=== PATIENT | female | born 1970 | race African-American/Black ===

== ENCOUNTER 2019-07-23 09:28 | Outpatient (CLI) | payer BC, SELFPAY ==
--- NOTE | ~2019-07-23 | MM_ITS ---
EXAMINATION: MM screening [facility] BI w uri HISTORY: Screening mammogram TECHNIQUE: Craniocaudal and mediolateral oblique 3-D tomosynthesis images were obtained and synthetic 2-D images were generated. CAD analysis was submitted and interpreted. COMPARISON: 03/28/2018, 03/09/2016, 03/05/2012 BREAST PARENCHYMAL COMPOSITION: The breasts are heterogeneously dense, which may obscure small masses . FINDINGS: There is no evidence of suspicious mass, calcification, or architectural distortion to sugg est malignancy in either breast. There has been no suspicious interval change. IMPRESSION: 1. No mammographic evidence of malignancy. 2. Recommend routine screening mammography in one year. BI-RADS Category 1: Negative Reviewed, dictated and finalized at location A.
== END 2019-07-23 09:29 | disposition home or self-care (01) ==
PROVIDERS: PCP Nurse Practitioner Family; Visit Provider Student in an Organized Health Care Education/Training Program
DX: Z12.31 Encounter for screening mammogram for malignant neoplasm of breast (principal)
CPT/HCPCS: 77063; 77067

== ENCOUNTER 2020-07-18 13:01 | Outpatient (CLI) | payer BC, SELFPAY ==
--- NOTE | ~2020-07-18 | US_ITS ---
EXAMINATION: US pelvic complete w TV DATE: 07/18/2020 14:27 INDICATION: Right adnexal pain Comparison:No prior studies for comparison. TECHNIQUE: Multiple transabdominal and endovaginal sonographic images of the pelvis performed. FINDINGS: The uterus is surgically absent. The right ovary measures 2.5 x 1.5 x 1.4 cm. Contiguous with the right ovary there is a hypoechoic ma ss measuring up to 1.3 cm. There is normal vascularity in the right ovary. Left ovary is not visualiz ed. There is no free fluid in the pelvis. IMPRESSION: 1. Solid hypoechoic mass contiguous with the right ovary measuring up to 1.3 cm. No evidence for ovar mele torsion. Differential diagnosis includes benign etiologies such as hemorrhagic cyst, endometrioma , as well as germ cell tumor and ovarian adenocarcinoma. Reviewed, dictated and finalized at location A. APHONE TYPIST IMPRESSION: 1. Solid hypoechoic mass contiguous with the right ovary measuring up to 1.3 cm . No evidence for ovarian torsion. Differential diagnosis includes benign etiol ogies such as hemorrhagic cyst, endometrioma, as well as germ cell tumor and ov emily adenocarcinoma.
== END 2020-07-18 13:02 | disposition home or self-care (01) ==
LOC: ANHIMG 13:06
PROVIDERS: PCP Nurse Practitioner Family; Visit Provider Student in an Organized Health Care Education/Training Program
DX: R10.2 Pelvic and perineal pain (principal)
CPT/HCPCS: 76830; 76856

== ENCOUNTER 2020-08-03 10:48 | Outpatient (CLI) | payer BC, SELFPAY ==
--- NOTE | ~2020-08-03 | MM_ITS ---
EXAMINATION: MM screening [facility] BI w uri HISTORY: Screening mammogram TECHNIQUE: Craniocaudal and mediolateral oblique 3-D tomosynthesis images were obtained and synthetic 2-D images were generated. CAD analysis was submitted and interpreted. COMPARISON: 07/23/2019, 03/28/2018, 03/09/2016 BREAST PARENCHYMAL COMPOSITION: The breasts are heterogeneously dense, which may obscure small masses . FINDINGS: A stable mass in the upper outer quadrant of the right breast is consistent with a benign f inding. There is no evidence of suspicious mass, calcification, or architectural distortion to sugges t malignancy in either breast. There has been no suspicious interval change. IMPRESSION: 1. No mammographic evidence of malignancy. 2. Recommend routine screening mammography in one year. BI-RADS Category 2: Benign finding(s). Reviewed, dictated and finalized at location A.
== END 2020-08-03 10:49 | disposition home or self-care (01) ==
LOC: ANHIMG 10:50
PROVIDERS: PCP Nurse Practitioner Family; Visit Provider Student in an Organized Health Care Education/Training Program
DX: Z12.31 Encounter for screening mammogram for malignant neoplasm of breast (principal)
CPT/HCPCS: 77063; 77067

== ENCOUNTER 2020-08-19 13:48 | Outpatient (CLI) | payer BC, SELFPAY ==
--- NOTE | 2020-08-19 14:24 | ECG_ITS ---
Measurements Intervals [place] Rate: 68 P: 61 AR: 125 QRS: 5 QRSD: 85 T: -86 QT: 379 QTc: 405 Interpretive Statements SINUS RHYTHM POSSIBLE LEFT ATRIAL ENLARGEMENT INCOMPLETE RIGHT BUNDLE BRANCH BLOCK ST-T WAVE ABNORMALITY IN ANTEROLAT/INF LEADS- CONSIDER ISCHEMIA ABNORMAL ECG Electronically Signed On 08-19-2020 14:49:22 CDT by Kenneth Dave D.O.
[2020-08-19 14:50] LABS: Hematocrit 41.4 % (37.0-47.0); Hemoglobin 13.6 g/dL (12.0-15.0)
== END 2020-08-19 13:49 | disposition home or self-care (01) ==
PROVIDERS: PCP Nurse Practitioner Family; Referring Provider Student in an Organized Health Care Education/Training Program; Visit Provider Anesthesiology
DX: D64.9 Anemia, unspecified (principal); I49.9 Cardiac arrhythmia, unspecified; Z01.818 Encounter for other preprocedural examination; I45.10 Unspecified right bundle-branch block
CPT/HCPCS: 36415; 85014; 85018; 93005

== ENCOUNTER → 2020-08-30 03:25 | Outpatient (CLI) | payer BC, SELFPAY ==
[2020-08-30 20:31] LABS: SARS-CoV-2 RNA PCR Negative
== END ==
PROVIDERS: PCP Nurse Practitioner Family; Visit Provider Student in an Organized Health Care Education/Training Program
DX: Z01.812 Encounter for preprocedural laboratory examination (principal); Z20.822 Contact with and (suspected) exposure to COVID-19
CPT/HCPCS: C9803; U0003; U0005

== ENCOUNTER 2020-09-02 01:38 | Day surgery (SDC) | payer BC, SELFPAY ==
[2020-08-18 13:34] VITALS: BMI 24.2
--- NOTE | 2020-09-01 09:44 | WPDANESEPPF ---
Anes - Initial Pre Proc Eval Procedure: Operation Date: 09/02/20 07:30 Proposed Procedures p Laparoscopic Right Salpingo-Oophorectomy - Sofia Cooper MD Date/Time: 09/01/20 09:44 Surgeon: Sofia Cooper MD Pre Op Diagnosis: Right Ovarian Solid Mass Patient Data Age: 49 Gender: F Height: 1.57 m Weight: 60 kg Allergies Allergy/AdvReac Type Severity Reaction Status Date / Time codeine Allergy Severe SHORTNESS Verified 08/23/20 13:53 OF BREATH levofloxacin Allergy Severe HIVES Verified 08/23/20 13:53 Home Medications Medication Instructions Recorded Confirmed Type albuterol sulfate 90 mcg/actuation 1 puff INHALATION Q4H PRN 07/12/20 History aerosol inhaler Patient hx anesthesia problems: none Family hx anesthesia problems: none PMFSH Past Medical History Medical History (Updated 09/02/20 @ 06:49 by Sofia Cooper MD) Acid reflux Anemia History of bronchitis History of pneumonia Hypertension Vaginal delivery x3 Surgical History Surgical History (Updated 08/23/20 @ 13:54 by Janet Jerome CMA) History of hysterectomy 2012 History of tubal ligation Family History Family History Mother Diabetes mellitus Patient's mother is in good health, Onset Age: 66 Hypertension Cerebrovascular accident Father Patient's father is in good health Sibling Patient's sister is in good health Family history of blood dyscrasia Grandparent Family history of malignant neoplasm of breast in first degree relative Social History Social History Smoking status: Former smoker Second hand tobacco smoke exposure: No Additional smoking assessment comments: HOOKA ON THE WEEKENDS Alcohol intake: current Drinks per week: 3 Substance use type: other Living arrangements: alone Anes - Eval Final PreProcedure Day of Procedure 09/01/20 09:44 Patient weight: normal Heart: regular rate and rhythm Lungs: clear to auscultation and normal air movement Airway: Mallampati scale class II Neurological: alert and oriented Last oral intake: >/= 8 hours ASA classification: II Emergent: no Anesthetic plan: proceed Anesthesia type and monitoring: general ETT Informed Consent: The patient's anesthetic plan and its attendant risks and benefits were discussed with the patient/family/POA. Questions were solicited and answers provided to the satisfaction of the patient/family/POA.
[2020-09-02] VITALS (12 sets, daily range): BP systolic 107–138; BP diastolic 65–93; PULSE 65–87; RESP 12–18; TEMP 36.4–36.8; O2SAT 100
[2020-09-02] MEDS: LACTATED RINGERS 1,000 ML 30 ML IV CONT ×2 (06:39→09:10)
[2020-09-02] MEDS: KETOROLAC 15 MG/ML VIAL (*BKC) IV PUSH (06:40)
[2020-09-02] MEDS: ACETAMINOPHEN 500 MG TABLET 1000 MG PO (06:40)
--- NOTE | 2020-09-02 06:45 | PM.IMHP ---
H&P: HPI History of Present Illness Date/Time: 09/02/20 06:45 Patient is a 49 year old woman s/p hysterectomy who presented to gynecology office in 07/2020 reporting persistent right sided pelvic pain that had been present for a long time. Ovaries were left in situ at time of hysterectomy and current daily pain is described as achy and near ovaries. A pelvic US was performed and showed a 1.3 cm mass contiguous with the right ovary. CA-125 was negative. Discussion had with patient regarding US findings and possible etiology of symptoms and decision was made to proceed with surgery to excise right ovary and mass. In general, patient is well today. Chief Complaint: pelvic pain, right adnexal mass Review of Systems Review of Systems: All systems reviewed & are unremarkable except as noted in HPI and below Constitutional: Constitutional: Reports as per HPI, Reports no additional constitutional complaints, Denies chills, Denies fever(s), Denies headache(s) and Denies night sweats Eyes: Eyes: Reports as per HPI and Reports no additional eye complaints ENT: Reports system reviewed and no additional complaints, except as documented, Reports as per HPI, Reports Normal hearing present and Denies headache(s) Cardiovascular: Cardiovascular: Reports as per HPI, Reports no additional cardiovascular complaints, Denies chest pain and Denies dyspnea Respiratory: Respiratory: Reports as per HPI, Reports no additional respiratory complaints, Denies cough and Denies dyspnea Gastrointestinal: Gastrointestinal: Reports as per HPI, Reports no additional gastrointestinal complaints, Denies abdominal pain, Denies change in bowel habits, Denies change in stool character, Denies nausea and Denies vomiting Genitourinary: Genitourinary: Reports no additional female genitourinary complaints, Reports as per HPI, Denies abnormal vaginal bleeding, Denies genital lesions, Denies hot flashes, Denies dyspareunia, Reports pelvic pain, Denies sexual dysfunction, Denies urinary incontinence, Denies vaginal discharge, Denies vaginal dryness and Denies vaginal odor Musculoskeletal: Musculoskeletal: Reports no additional musculoskeletal complaints and Reports as per HPI Integumentary/Breasts: Skin/Breast: Reports system reviewed and no additional complaints, except as docu, Reports as per HPI, Denies breast pain and Denies nipple discharge Neurologic: Reports system reviewed and no additional complaints, except as documented, Reports as per HPI, Reports Normal hearing present and Denies headache(s) Psychiatric: Psychiatric: Reports no additional psychiatric complaints, Reports as per HPI, Denies anxiety and Denies depression Endocrine: Endocrine: Reports no additional endocrine complaints and Reports as per HPI Hematologic/Lymphatic: Hematologic/Lymphatic: Reports no additional hematologic/lymphatic complaints and Reports as per HPI Allergic/Immunologic: Allergic/Immunologic: Reports no additional allergic/immunologic complaints and Reports as per HPI PMFSH Past Medical History Medical History Acid reflux Anemia History of bronchitis History of pneumonia Hypertension Vaginal delivery x3 Surgical History Surgical History History of hysterectomy 2012 History of tubal ligation Family History Family History Mother Diabetes mellitus Patient's mother is in good health, Onset Age: 66 Hypertension Cerebrovascular accident Father Patient's father is in good health Sibling Patient's sister is in good health Family history of blood dyscrasia Grandparent Family history of malignant neoplasm of breast in first degree relative Social History Social History Smoking status: Former smoker Second hand tobacco smoke exposure: No Additional smoking assessment commen
--- NOTE | 2020-09-02 07:09 | WPDHPUPDATE1 ---
History and Physical Update Update Date/Time: 09/02/20 07:09 History and Physical has been reviewed, including an updated exam of the patient. There are NO changes in the patient's condition. Risks, benefits, and alternatives have been discussed and questions answered. Patient agrees to proceed with procedure.
--- NOTE | 2020-09-02 09:18 | PM.PROC ---
Procedure Note - Detailed Date of procedure: 09/02/20 Pre-op diagnosis: Right Ovarian Solid Mass Post-op diagnosis: other (Extensive adhesions) Procedure performed: Extensive lysis of adhesions Description of procedure: The patient was taken to the operating room where she self transferred to the operating room table. She was placed in dorsal supine position. General anesthesia was administered and found be adequate. The patient was repositioned in dorsal lithotomy position with use of Louie stirrups. She was prepped and draped in the usual sterile fashion. A red rubber catheter was used to drain the bladder of 325 cc of clear urine. Screen Tender Helper's gloves were changed and attention was turned to the patient's abdomen. A small amount of Exparel was injected in the infraumbilical region. An infraumbilical skin incision was made with scalpel. With the abdomen tented up, a Veress needle was inserted into the abdominal cavity. Intra-abdominal placement was confirmed with saline. Carbon dioxide tubing was connected to the Veress needle and insufflation was begun. When adequate pneumoperitoneum was achieved, the Veress needle was removed and a 5 mm Optiview trocar was inserted under direct visualization. The patient was placed in Trendelenburg position for enhanced visualization. A pelvic survey was attempted, however, extensive adhesions were visualized along both the left and right abdominal and pelvic side wall. Due to limited visualization, decision was made to proceed with the placement of an accessory trocar in the right lower quadrant. Very carefully, a 5 mm trocar was introduced under direct visualization in the right lower quadrant. This enabled dissection of adhesions along the left abdominal and pelvic side wall to increase visibility so that a second accessory trocar could be placed on the left side. With the use of traction and counter traction maneuvers as well as with the LigaSure device (using both the cutting blade without cautery as well as occasionally with cautery), numerous adhesions were transected and the bowel was taken down. A 5 mm trocar was inserted in the left lower quadrant under direct visualization. Numerous adhesions were then transected and the bowel was from the right abdominal and pelvic side wall as much as possible using mostly blunt dissection and the cutting blade of the LigaSure device. No identifiable right ovarian tissue was seen. Careful dissection inferiorly towards the posterior cul-de-sac was continued, however, again, several adhesions were encountered, many of which were transected. Even tracing the pelvic side wall inferiorly several times, no structure resembling an ovary or even the infundibulopelvic ligament was visualized. There was a structure seen, almost midline, deep in the posterior cul-de-sac that possibly resembled a fallopian tube, however, this was unable to be confirmed and could not be distinguished well enough from the surrounding adhesions and bowel to confidently identify and excise the structure and no ovarian tissue was seen beneath or near this structure. Due to the extensive adhesive disease and inability to identify the right ovary after several attempts, decision was made to terminate the procedure. The left ovary was also never seen despite several attempts. The laparoscope was inserted in the right lower quadrant trocar to complete a general abdominal survey. Extensive omental adhesions were noted near the umbilical trocar to the anterior abdominal wall with some loops of bowels noted encased within these adhesions. The liver and gallbladder were unable to be visualized. Several photographs were taken throughout procedure. The laparoscope was reinserted in the umbilical trocar and the right and left lower quadrant trocars were removed under direct visualization and the abdomen was desufflated. The laparoscope was removed just prior to the end of desufflation and the infraumbilical trocar was also removed.
[2020-09-02] MEDS: fentaNYL CITRATE INJ (*CRX) 100 MCG/2 ML VIAL 25 MCG IV PUSH (09:36)
--- NOTE | 2020-09-02 17:07 | P.PNCROSS_ITS ---
Event Note Event Note Event Note: Patient was seen in the recovery room shortly after the procedure. The procedure and findings were discussed with her and her partner. Patient was made aware that the right ovary was not identified during procedure and was, therefore, not removed as originally planned. Patient was made aware that the procedure was terminated due to the extensive adhesions and inability to identify ovary as it was deemed safer to terminate the procedure at the time rather than continuing the procedure and possibly doing more harm than good should complications have arisen. Patient also made aware of next step in management and plan of care, which is to allow her to recover from this proced ure for a few weeks and then re-image pelvis with an MRI. Pending similar findings as pelvic US, will refer to nurse practitioner per diem onc for further evaluation and recommendations. Should they feel strongly that ovary needs to be removed, will defer surgical management to them. Although patient is confident that ovaries were left in situ during hysterectomy in 2011 and the right ovary was visualized on recent US, will also request previous operative reports for review. Release of information forms signed. Patient implied an understanding and agrees with plan.
== END 2020-09-02 12:48 | disposition home or self-care (01) ==
PROVIDERS: PCP Nurse Practitioner Family; Visit Provider Student in an Organized Health Care Education/Training Program
PROC: (CPT 49320; principal; 2020-09-02 07:30)
DX: N83.8 Other noninflammatory disorders of ovary, fallopian tube and broad ligament (principal); R10.2 Pelvic and perineal pain; D64.9 Anemia, unspecified; Z87.891 Personal history of nicotine dependence; K21.9 Gastro-esophageal reflux disease without esophagitis; Z79.51 Long term (current) use of inhaled steroids; I10 Essential (primary) hypertension
CPT/HCPCS: 58660; 36415; 85014; 85018; 93005; A9270; C9290; C9803; J1100; J1885; J2250; J2405; J2704; J2710; J3010; J7030; J7120; U0003; U0005

== ENCOUNTER 2021-02-07 10:15 | Outpatient (CLI) | payer BC, SELFPAY ==
--- NOTE | ~2021-02-07 | MR_ITS ---
EXAMINATION: MR pelvis wo/w con DATE: 02/07/2021 11:23 INDICATION: Noninflammatory disorder of the ovaries and fallopian tubes with ovaries are unable to be identified during prior hysterectomy. TECHNIQUE: Magnetic resonance imaging (MRI) of the pelvis was performed without intravenous contrast. Fullfield sequences of the pelvis included axial and coronal T2-weighted SS FSE, coronal 2D FIESTA, axial and coronal T1 weighted LAVA, axial fluid sensitive FSE STIR small field of view sequences incl uded axial and sagittal T2-weighted FSE centered on the uterus and adnexa. Study was ordered as with and without contrast however patient developed acute episode of claustrophobia during the study which was halted prior to obtaining postcontrast imaging. No contrast was administered. COMPARISON: Ultrasound dated 07/18/2020 FINDINGS: Bladder is normal. The uterus is not identified and has likely been surgically resected. The bilatera l ovaries are unable to be definitively identified/distinguished from the multiple loops of bowel in the deep pelvis. No bowel obstruction. Elongated cyst measuring up to 2.0 cm in maximal diameter at t he upper pole of the left kidney. Right kidney is unremarkable. A few subcentimeter T2 hyperintense h epatic cysts. Visualized portion of the gallbladder is unremarkable. No free fluid in the pelvis. No pathologically enlarged pelvic or inguinal lymphadenopathy. Mild lower lumbar spondylosis. Normal bon e marrow signal throughout. IMPRESSION: 1. The ovaries are unable to be definitively identified with evaluation significantly limited by the absence of intravenous contrast as patient terminated the study prematurely due to claustrophobia. Co uld consider contrast-enhanced CT of the abdomen and pelvis which the ovaries can typically be readil y identified by following the contrast opacified gonadal vessels. Reviewed, dictated and finalized at location A. IMPRESSION: 1. The ovaries are unable to be definitively identified with evaluation signifi cantly limited by the absence of intravenous contrast as patient terminated the study prematurely due to claustrophobia. Could consider contrast-enhanced CT o f the abdomen and pelvis which the ovaries can typically be readily identified by following the contrast opacified gonadal vessels.
[2021-02-07 10:50] LABS: Estimated Glomerular Filt Rate > 60
== END 2021-02-07 10:16 | disposition home or self-care (01) ==
LOC: ANHIMG 10:18
PROVIDERS: PCP Nurse Practitioner Family; Visit Provider Student in an Organized Health Care Education/Training Program
DX: N83.8 Other noninflammatory disorders of ovary, fallopian tube and broad ligament (principal)
CPT/HCPCS: 72197